=== PATIENT | male | born 1955 ===

== ENCOUNTER 2021-03-24 08:47 | Day surgery (SDC) | payer MEDICARE ==
[~2021-03-24] VITALS: Ht 172.7 cm; Wt 67.5 kg
[2021-03-24] MEDS ORDERED: ADALAT CC60 M1 (09:02)
[2021-03-24] MEDS ORDERED: ATOR10 (09:03)
[2021-03-24] MEDS ORDERED: CARV25 (09:03)
--- NOTE | 2021-03-24 10:39 | NUR ---
03/24/21 1039 Rosa Gabriel 1008 PT. WAS MOVING UP IN BED & HE ACCIDENTALLY PULLED HIS IV OUT. PRESSURE HELD & WRAPPED WITH COBAN.
== END 2021-03-24 10:25 | disposition home or self-care (01) ==
LOC: ORSCSDS 08:47
PROVIDERS: Internal Medicine Gastroenterology
PROC: 0DBL8ZX Excision of Transverse Colon, Via Natural or Artificial Opening Endoscopic, Diagnostic (ICD-10-PCS; principal; 2021-03-24 10:00)
PROC: 0DBK8ZX Excision of Ascending Colon, Via Natural or Artificial Opening Endoscopic, Diagnostic (ICD-10-PCS; principal; 2021-03-24 10:00)
DX: Z12.11 Encounter for screening for malignant neoplasm of colon (principal); D12.2 Benign neoplasm of ascending colon; D12.3 Benign neoplasm of transverse colon; K57.30 Diverticulosis of large intestine without perforation or abscess without bleeding; K64.8 Other hemorrhoids; Z79.899 Other long term (current) drug therapy
CPT/HCPCS: 88305; J2704; J7120